=== PATIENT | female | born 1985 | race American Indian/Alaskan Native ===

== ENCOUNTER 2019-06-18 12:37 | Outpatient (CLI) | payer MEDICAID ==
[2019-06-18 15:34] VITALS: BP 113/63
== END 2019-06-18 16:16 | disposition home or self-care (01) ==
LOC: LAB 12:37 → TRG 12:37
PROVIDERS: ATTEND Obstetrics & Gynecology
DX: O26.893 Other specified pregnancy related conditions, third trimester (principal); Z3A.28 28 weeks gestation of pregnancy; Z67.21 Type B blood, Rh negative
CPT/HCPCS: 59025; 86850; 86900; 86901; 96372; J2790